=== PATIENT | female | born 2000 | race Two or more races ===

== ENCOUNTER 2019-04-14 20:51 | Emergency (ER) | payer SELFPAY ==
[~2019-04-14] VITALS: Ht 162.6 cm; Wt 125.5 kg
[~2019-04-14 20:51] MED LIST: NOCURR
[2019-04-14 21:50] VITALS: BP 132/77
[2019-04-14] MEDS ORDERED: BACITRACIN 0.9 GM PACKET OINTMENT TP ONE (22:00)
== END 2019-04-14 22:21 | disposition home or self-care (01) ==
LOC: EMS 21:52
DX: S90.821A Blister (nonthermal), right foot, initial encounter (principal); X58.XXXA Exposure to other specified factors, initial encounter; Y93.89 Activity, other specified; Y92.69 Other specified industrial and construction area as the place of occurrence of the external cause; Y99.8 Other external cause status